=== PATIENT | male | born 1970 | race Caucasian/White ===

== ENCOUNTER 2023-04-22 22:14 | Emergency (ER) | payer OTHER ==
[~2023-04-22] VITALS: Ht 175.3 cm; Wt 99.8 kg
--- NOTE | 2023-04-22 22:14 | NUR ---
PT BIB [facility] PRE[facility]OOK. TAKEN TO ER CHAIR
[2023-04-22 22:18] VITALS: BP 135/78; PULSE 119; RESP 19; TEMP 98.4; O2SAT 95
[2023-04-22 22:41] VITALS: PULSE 105; RESP 17; O2SAT 95
--- NOTE | 2023-04-22 22:42 | NUR ---
Patient discharged. Written and verbal after care instructions given and explained. Patient verbalized understanding. In police custody. ID band removed. All questions addressed prior to discharge. Advised to follow up with [employer].
== END 2023-04-22 22:42 ==
LOC: MED 22:14
DX: I10 Essential (primary) hypertension (principal); Z79.899 Other long term (current) drug therapy; V49.88XA Car occupant (driver) (passenger) injured in other specified transport accidents, initial encounter; Y93.89 Activity, other specified; Y92.89 Other specified places as the place of occurrence of the external cause; Y99.8 Other external cause status
CPT/HCPCS: 99283